=== PATIENT | female | born 1965 | race Hispanic/Latino ===

== ENCOUNTER → 2020-04-12 | Day surgery (SDC) | payer BC ==
[2020-04-07 16:04] LABS: ANION GAP 14.5 mmol/L (8-16); BLOOD UREA NITROGEN 16 mg/dL (7-26); BUN/CREATININE RATIO 21 (6-25); CARBON DIOXIDE 26 mmol/L (22-29); CHLORIDE 103 mmol/L (98-107); CREATININE, SERUM 0.75 mg/dL (0.57-1.11); EST GLOMERULAR FILTRATION RATE > 60 ML/MIN (60-); GLUCOSE 109 mg/dL (74-118); POTASSIUM 3.5 mmol/L (3.5-5.1); SODIUM 140 mmol/L (136-145)
[2020-04-07 16:05] LABS: CALCIUM 8.9 mg/dL (8.4-10.2)
[~2020-04-12] MED LIST: BUPIVACAINE 0.5%/EPI 30 ML SDV INJ ONE; CEFAZOLIN SOD 1 GM/NS 50ML 100 ML IV ONE; DEXAMETHASONE SOD PHOS INJ 4 MG/ML VIAL ONE; FENTANYL CITRATE/PF 100MCG/2 ML INJ ONE; FLECTOR1 EACH TOP; LIDOCAINE HCL 2% LOCAL INJ 5 ML SDV VIAL INJ ONE; LISINOPRIL-HCT1 EACH PO; METHIMAZOLE10 MG PO; MIDAZOLAM HCL 2 MG/2 ML VIAL ONE; NORCO 7.5-3251 EACH PO; ONDANSETRON HCL INJ 2MG/ML 2ML 2 MG/ML VIAL ONE; PROPOFOL IV EMULSION 10 MG/ML 20 ML VIAL ONE; SEVOFLURANE INHAL SOLN 250 ML PEN BTL ONE; SYNTHROID125 MCG PO
[2020-04-12 14:10] VITALS: BP 119/76
--- NOTE | 2020-04-17 21:00 | Operative Report ---
DATE OF PROCEDURE: 04/12/2020 SURGEON: Sonny García MD PREOPERATIVE DIAGNOSES: Right knee medial meniscus tear, right knee degenerative joint disease of the knee. POSTOPERATIVE DIAGNOSES: Right knee medial meniscus tear, right knee degenerative joint disease of the knee. OPERATION AND PROCEDURES PERFORMED: The patient underwent a right knee examination under anesthesia, right knee arthroscopy, right knee partial medial meniscectomy, right knee chondroplasty of the patella, the trochlea, the medial femoral condyle, the medial tibial plateau, the lateral tibial plateau. 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 ANESTHESIA: General endotracheal intubation anesthesia. IV FLUIDS: As per anesthesia record. BRIEF DESCRIPTION OF THE PATIENT'S OPERATIVE PROCEDURE: Ms. Díaz was taken to the operating room and placed supine position on the operating room table. Following the induction of general anesthesia as well as endotracheal intubation, the patient's right lower extremity was examined under anesthesia. She was found to have some mild effusion within the knee joint. A two-port technique was used to provide this patient arthroscopic evaluation of the knee joint. Examination of suprapatellar pouch, medial lateral gutters found no evidence of loose bodies. There was, however, evidence of chondromalacia of the patellar and trochlear surfaces. Scope was advanced to the medial compartment. Examination of the medial compartment demonstrated a torn medial meniscus. There was also chondromalacia of the articulating surfaces. A combination of biting forceps and a motorized shaver were used to resect the torn portion of the meniscus. Chondroplasties of the medial femoral condyle and medial tibial plateau were performed at this time. The scope was then advanced to the intercondylar notch and the anterior cruciate ligament was identified and found to be intact. Thus, the scope was then advanced into the lateral compartment and there was chondromalacia of the lateral tibial plateau. A chondroplasty of this surface was performed. The scope was then placed in the suprapatellar pouch in a chondroplasty of the patella and trochlea was performed. The knee was deflated with sterile normal saline. Each of the portal sites were closed using 4-0 nylon suture. The portal sites as well as the knee itself were then injected with 0.5% Marcaine with epinephrine. Sterile dressings were applied, and the patient was awakened and taken to the Postanesthesia Care Unit in stable condition. MD TOMAS Quintanilla/SHAUNA /[id number]
== END | disposition home or self-care (01) ==
LOC: OR 08:15
PROVIDERS: ATTEND Specialist
DX: M17.11 Unilateral primary osteoarthritis, right knee (principal); S83.221A Peripheral tear of medial meniscus, current injury, right knee, initial encounter; I10 Essential (primary) hypertension; E05.90 Thyrotoxicosis, unspecified without thyrotoxic crisis or storm; E03.9 Hypothyroidism, unspecified; Z11.59 Encounter for screening for other viral diseases; Z01.810 Encounter for preprocedural cardiovascular examination; Z01.812 Encounter for preprocedural laboratory examination
CPT/HCPCS: 29881; 36415; 80048; 93005; J0690; J1100; J2001; J2250; J2405; J2704; J3010; U0002